=== PATIENT | female | born 1990 | race Caucasian/White ===

== ENCOUNTER 2024-05-22 19:04 | Emergency (ER) | payer OTHER ==
[~2024-05-22] VITALS: Ht 157.5 cm; Wt 68.0 kg
[2024-05-22] MEDS ORDERED: MAGCIT300 PO (19:39)
[2024-05-22] MEDS ORDERED: BISA5EC PO (19:39)
== END 2024-05-22 19:45 | disposition home or self-care (01) ==
LOC: ER 19:04
DX: K59.09 Other constipation (principal); Z87.891 Personal history of nicotine dependence
CPT/HCPCS: 99283